=== PATIENT | male | born 1960 ===

== ENCOUNTER 2020-04-27 10:14 | Emergency (ER) | payer SELFPAY ==
[2020-04-27] MEDS ORDERED: ASPIRIN 325 MG TAB PO ONE (10:25)
--- NOTE | 2020-04-27 11:21 | XRay Report ---
CHEST 2 VIEWS INDICATION / CLINICAL INFORMATION: Chest Pain. COMPARISON: None available. FINDINGS: SUPPORT DEVICES: None. HEART / MEDIASTINUM: No significant abnormality. LUNGS / PLEURA: No significant pulmonary or pleural abnormality. No pneumothorax. ADDITIONAL FINDINGS: No significant additional findings. IMPRESSION: 1. No acute findings. Signer Name: Jeffery Bell MD Signed: 04/27/2020 11:17 AM Workstation Name: [id number]
[2020-04-27 11:28] LABS: Basophils % (Auto) 0.5 % (0.0-1.8); Eosinophils % (Auto) 0.3 % (0.0-4.3); Hematocrit 44.4 % (35.5-45.6); Hemoglobin 15.3 gm/dl (11.8-15.2); Lymphocytes % (Auto) 13.1 % (13.4-35.0); Mean Corpuscular HGB Conc 35 % (32-34); Mean Corpuscular Volume 80 fl (84-94); Monocytes # (Auto) 0.5 K/mm3 (0.0-0.8); Monocytes % (Auto) 6.4 % (0.0-7.3); Platelet Count 156 K/mm3 (140-440); Red Blood Count 5.58 M/mm3 (3.65-5.03); Red Cell Distribution Width 14.9 % (13.2-15.2)
[2020-04-27 12:15] LABS: BUN/Creatinine Ratio 16; Blood Urea Nitrogen 11 mg/dL (9-20); Calcium 8.9 mg/dL (8.4-10.2); Hemolysis Index 5
--- NOTE | 2020-04-27 12:28 | Emergency Department Report ---
ED Chest Pain HPI - General Chief Complaint: Chest Pain Stated Complaint: CHEST PAIN Time Seen by Provider: 04/27/20 12:12 Source: patient, family Mode of arrival: Ambulatory Limitations: No Limitations - History of Present Illness Initial Comments: This is a 59-year-old male who presents to the emergency department with complaint of a 3-day history of some intermittent symptoms that includes abdominal cramping, chest discomfort, shortness of breath, and feeling hot all over. The patient was diagnosed with COVID-19 on March 29, about 1 month ago, and he is concerned that may be the infection did not clear. He denies any past medical history. He denies any tobacco or illicit drug use. He has not taken anything for symptoms prior to presentation. At the time of my examination the patient mostly complains of some abdominal cramping and some mild back pain. He denies any problems with bowel or bladder, numbness or paresthesias, or any neurological deficits. No recent travel or sick contacts at home. He denies any current fever, although he feels warm, and denies any lower extremity swelling, nausea, vomiting. The patient does not speak Malaysian and [employer] was used to assist with translation. - Related Data Allergies Allergy/AdvReac Type Severity Reaction Status Date / Time No Known Allergies Allergy Verified 04/27/20 10:21 Heart Score - HEART Score History: Slightly suspicious EKG: Normal Age: 45-65 Risk factors: No known risk factors Troponin: < normal limit HEART Score: 1 - Critical Actions Critical Actions: 0-3 pts:0.9-1.7%risk of adverse cardiac event.Candidate for discharge ED Review of Systems ROS: Stated complaint: CHEST PAIN Other details as noted in HPI Comment: All other systems reviewed and negative Constitutional: fever (Subjective). denies: chills Eyes: denies: eye pain, vision change ENT: denies: ear pain, throat pain Respiratory: cough, shortness of breath (Intermittent) Cardiovascular: chest pain (Intermittent). denies: edema Gastrointestinal: abdominal pain (Intermittent). denies: nausea, vomiting Genitourinary: denies: dysuria, discharge Musculoskeletal: back pain (Intermittent) Skin: denies: rash, lesions Neurological: denies: headache, weakness ED Past Medical Hx - Past Medical History Previous Medical History?: Yes Hx Hypertension: Yes - Surgical History Past Surgical History?: No - Social History Smoking Status: Never Smoker Substance Use Type: None ED Physical Exam - General Limitations: No Limitations - Other Other exam information: GENERAL: The patient is well-developed well-nourished. HENT: Normocephalic. Atraumatic. Patient has moist mucous membranes. EYES: Extraocular motions are intact. NECK: Supple. Trachea is midline. CHEST/LUNGS: Clear to auscultation. There is no respiratory distress noted. HEART/CARDIOVASCULAR: Regular. There is no tachycardia. There is no murmur. ABDOMEN: Abdomen is soft, nontender. Patient has normal bowel sounds. SKIN: Skin is warm and dry. NEURO: The patient is awake, alert, and oriented. The patient is cooperative. The patient has no focal neurologic deficits. Normal speech. MUSCULOSKELETAL: There is no tenderness or deformity. There is no limitation range of motion. BACK: No midline thoracic or lumbar tenderness to palpation. ED Course Vital Signs 04/27/20 04/27/20 04/27/20 10:24 12:26 13:01 Temperature 99.1 F Pulse Rate 97 H 62 64 Respiratory 16 23 19 Rate Blood Pressure 155/95 Blood Pressure 190/111 168/90 [Left] O2 Sat by Pulse 97 99 98 Oximetry JAQUAN score - Jaquan Score Age > 65: (0) No Aspirin use within the Past 7 Days: (0) No 3 or more CAD Risk Factors: (0) No 2 or more Angina events in past 24 hrs: (1) Yes Known CAD with more than 50% Stenosis: (0) No Elevated Cardiac Markers: (0) No ST Deviation Greater than 0.5mm: (0) No JAQUAN Score: 1 ED Medical Decision Making - Lab Data Result diagrams: 04/27/20 11:12 04/27/20 11:12 - EKG Data -: EKG Interpreted by Me EKG shows normal: sinus rhythm, axis, intervals, QRS complexes, ST-T waves Rate: normal - EKG Data When compared to previous EKG there are: previous EKG unavailable Interpretation: normal EKG - Radiology Data Radiology results: image reviewed interpreted by me: Chest x-ray does not show any acute process. There are no pleural effusions, obvious pneumonia and there is no pneumothorax. No significant cardiomegaly. Abdominal x-ray shows nonspecific nonobstructive bowel gas. No free air. - Medical Decision Making This patient presents to the emergency department with complaint of intermittent chest and abdominal pains, intermittent back pain, and intermittent shortness of breath. The patient had Covid about 1 month ago and is just concerned that he got pneumonia. On examination the patient's heart and lung sounds are normal to auscultation. There is no abdominal tenderness to palpation. He does not appear in any respiratory or acute distress. Chest x-ray does not show any pneumonia, pleural effusions, pneumothorax, or any other acute process. Abdominal x-ray shows nonspecific nonobstructive bowel gas. EKG does not have any morphology consistent with ST elevation myocardial infarction. The patient's labs have been unremarkable including CBC, CMP, negative troponins x2. The patient is low on the heart and JAQUAN score. He is low on the Wells score criteria and negative on the pulmonary embolism rule out criteria. For all these reasons the patient appears safe for discharge home at this time. His contact information has been sent over to the [facility], and someone from their office should be contacting him shortly for close outpatient follow-up as per our [facility] low risk chest pain protocol. Critical Care Time: No Critical care attestation.: If time is entered above; I have spent that time in minutes in the direct care of this critically ill patient, excluding procedure time. ED Disposition Clinical Impression: Intermittent chest pain Abdominal pain Qualifiers: Abdominal location: generalized Qualified Code(s): R10.84 - Generalized abdominal pain Hypertension Qualifiers: Hypertension type: essential hypertension Qualified Code(s): I10 - Essential (primary) hypertension Disposition: DC- TO HOME OR SELFCARE Is pt being admited?: No Condition: Stable Instructions: Abdominal Pain, Adult, Nonspecific Chest Pain, Adult, Hypertension, Adult, Chest Pain (ED), Hypertension (ED) Additional Instructions: Rachael un seguimiento con un mdico de atencin primaria en los prximos vance. Estoy dando algunas referencias para un mdico de atencin primaria y jessy c lnica. Estoy enviando navas informacin de contacto al [facility]ro [facility] y alguien de navas oficina debera comunicarse con usted en breve para un seguimiento cercano nevaeh paciente externo. Por si acaso, le estoy dando jessy referencia para svetlana de marianne cardilogos. Regrese al departamento de emergencias con cualquier empeoramiento de marianne sntomas, sntomas nuevos o preocupantes que no se abordaron tan esta visita actual al departamento de emergencias, o con cualquier angustia aguda. Referrals: PRIMARY CARE, [Primary Care Provider] - 3-[address] MD [Staff Physician] - 3-5 Days ZAIDA CASTILLO MD [Staff Physician] - 3-5 Days [facility] [Provider Group] - 3-5 Days Time of Disposition: 14:46 Print Language: VINCENTIAN
[2020-04-27] MEDS ORDERED: DICYCLOMINE 20 MG TAB PO ONE (12:33)
--- NOTE | 2020-04-27 12:52 | XRay Report ---
ABDOMEN 2 VIEW(S) INDICATION / CLINICAL INFORMATION: Abd pain. COMPARISON: None available. FINDINGS: TUBES / LINES: None. BOWEL GAS PATTERN: No significant abnormality. FREE AIR / EXTRALUMINAL GAS: None seen. ADDITIONAL FINDINGS: No significant additional findings. IMPRESSION: No significant abnormality. Signer Name: Beingno Pompa Jr, MD Signed: 04/27/2020 12:48 PM Workstation Name: [id number]
[2020-04-27 13:06] VITALS: BP 155/95
== END 2020-04-27 14:45 | disposition home or self-care (01) ==
LOC: ED 10:14
DX: R07.89 Other chest pain (principal); R10.9 Unspecified abdominal pain; I10 Essential (primary) hypertension; Z79.899 Other long term (current) drug therapy
CPT/HCPCS: 36415; 71046; 74019; 80048; 84443; 84484; 85025; 93005